=== PATIENT | female | born 1935 | race African-American/Black ===

== ENCOUNTER 2020-01-24 12:33 | Emergency (ER) | payer MEDICARE ==
[~2020-01-24] VITALS: Ht 165.1 cm; Wt 75.7 kg
[2020-01-24 12:54] VITALS: BP 184/67
[2020-01-24] MEDS ORDERED: SYNTHROID50 MCG ORAL (12:57)
[2020-01-24] MEDS ORDERED: LEXAPRO10 MG ORAL (12:57)
[2020-01-24] MEDS ORDERED: METFORMIN HCL500 M1 ORAL (12:57)
--- NOTE | 2020-01-24 13:32 | Emergency Room Report ---
History of Present Illness General Chief Complaint: Upper Extremity Injury Source: Patient Present Illness HPI 84-year-old female here complaining of left hand pain x3 weeks. Reports that she accidentally injured it 3 weeks ago however does not recall how. Pain is localized to left fifth metacarpal. Has not taken medication for symptom relief. Area of pain is tender to palpation. Denies any pain radiation and tingling numbness. Has full range of motion. Patient is neurovascularly intact. Has full strength in the affected side. Denies all other injuries. Patient is currently not taking any blood thinners. Patient also complains of a semi-pruritic dry rash to left arm. Does not know how long it is been there. Reports that she sweats a lot. Rash appears to be eczematic, without any pus , and not TTP Allergies: Coded Allergies: ASPIRIN (Verified Allergy, Unknown, 01/24/20) CODEINE (Verified Allergy, Unknown, 01/24/20) PENICILLINS (Verified Allergy, Unknown, 01/24/20) SULFA (SULFONAMIDE ANTIBIOTICS) (Verified Allergy, Unknown, 01/24/20) COVID-19 Screening Contact w/high risk pt: No Experienced COVID-19 symptoms?: No COVID-19 Testing performed PROCUREMENT INTERN: No Patient History Past Medical History: see triage record Past Surgical History: none Pertinent Family History: none Now: No Immunizations: UTD Reviewed Nursing Documentation: PMH: Agreed; PSxH: Agreed Nursing Documentation-PM Past Medical History: No History, Except For Hx Diabetes: Yes - hypothirodism History Of Psychiatric Problem: Yes - dementia Review of Systems All Other Systems: negative except mentioned in HPI Physical Exam Vital Signs Date Time Temp Pulse Resp B/P (MAP) Pulse Ox O2 Delivery O2 Flow Rate FiO2 01/24/20 12:42 96.8 56 16 184/67 (106) 98 Room Air Sp02 EP Interpretation: reviewed, normal General Appearance: no apparent distress, alert, GCS 15, non-toxic Head: normocephalic, atraumatic Eyes: bilateral eye normal inspection, bilateral eye PERRL ENT: hearing grossly normal, normal pharynx, no angioedema, normal voice Neck: full range of motion, supple/symm/no masses Respiratory: chest non-tender, lungs clear, normal breath sounds, no rhonchi, speaking full sentences Cardiovascular #1: regular rate, rhythm, no edema, no murmur Cardiovascular #2: 2+ radial (R), 2+ radial (L) Gastrointestinal: normal bowel sounds, non tender, soft, non-distended, no guarding, no rebound Rectal: deferred Musculoskeletal: back normal, normal range of motion, tender - Left fifth metacarpal bone Neurologic: alert, motor strength/tone normal, oriented x3, sensory intact, responsive, speech normal Psychiatric: judgement/insight normal, memory normal, mood/affect normal, no suicidal/homicidal ideation Skin: rash - eczematic rash left armpit, no pus, non celluletic Lymphatic: no adenopathy Procedures Splinting Splinting : Consent: Verbal Location: left fifth finger Pre-Made Type: metal Pre-Proc Neuro Vasc Exam: normal Post-Proc Neuro Vasc Exam: normal Patient Tolerated: Well Complications: None Medical Decision Making PA Attestation ALL Diagnosis and treatment plan reviewed and discussed with my supervising physician Dr. Womack Diagnostic Impression: Primary Impression: Finger sprain ER Course 84-year-old female here complaining of left hand pain x3 weeks. Reports that she accidentally injured it 3 weeks ago however does not recall how. Pain is localized to left fifth metacarpal. Has not taken medication for symptom relief. Area of pain is tender to palpation. Denies any pain radiation and tingling numbness. Has full range of motion. Patient is neurovascularly intact. Has full strength in the affected side. Denies all other injuries. Patient is currently not taking any blood thinners.Patient also complains of a semi-pruritic dry rash to left arm. Does not know how long it is been there. Reports that she sweats a lot. Rash appears to be eczematic, without any pus, and not TTP Ddx considered but are not limited to: Hand sprain, hand sprain, hand fracture Vital signs: are WNL, pt. is afebrile H&PE are most consistent with :fifth finger sprain, contact dermatitis ORDERS: Hand x-ray, Motrin, Tylenol, triamcinolone cream ED INTERVENTIONS: Tylenol DISCHARGE: At this time pt. is stable for d/c to home. Will provide printed patient care instructions, and any necessary prescriptions. Care plan and follow up instructions have been discussed with the patient prior to discharge. Take medication as directed, follow-up with life specialist, keep splint on, if worsening symptoms return to the emergency room Other X-Ray Diagnostic Results Other X-Ray Diagnostic Results : X-Ray ordered: Left hand # of Views/Limited Vs Complete: 3 View Indication: Pain EP Interpretation: Yes PA Xray: Interpretation reviewed, by supervising MD, and agrees with findings. Interpretation: no dislocation, no soft tissue swelling, no fractures Impression: No acute disease Electronically Signed by: Ashlyn Martinez PA-C Last Vital Signs Date Time Temp Pulse Resp B/P (MAP) Pulse Ox O2 Delivery O2 Flow Rate FiO2 01/24/20 12:54 96.8 56 16 184/67 98 Room Air Disposition: HOME, SELF-CARE Condition: Stable Patient Instructions: Contact Dermatitis, [id number], Finger Sprain, Easy-to- Read Additional Instructions: Take medication as directed, follow-up with life specialist, keep splint on, if worsening symptoms return to the emergency room Ashlyn Harrell Jan 24, 2020 13:32
[2020-01-24] MEDS ORDERED: TRIAMCINOLONE A15 G1 TP (13:47)
[2020-01-24] MEDS ORDERED: TYLENOL EXTRA500 MG ORAL (13:47)
[2020-01-24] MEDS ORDERED: IBUPROFEN400 MG ORAL (13:47)
[2020-01-24 13:58] VITALS: BP 158/64
--- NOTE | 2020-01-24 14:23 | Diagnostic Imaging Report ---
EXAM: XR Left Hand Complete, 3 or More Views CLINICAL HISTORY: TRAUMA TECHNIQUE: Frontal, lateral and oblique views of the left hand. COMPARISON: No relevant prior studies available. FINDINGS: Bones/joints: No acute fracture. Degenerative changes and osteopenia. Soft tissues: No radiodense foreign body. Mild soft tissue swelling. IMPRESSION: No acute fracture.
== END 2020-01-24 13:58 | disposition home or self-care (01) ==
LOC: EMR 13:30
DX: S63.617A Unspecified sprain of left little finger, initial encounter (principal); X58.XXXA Exposure to other specified factors, initial encounter; Y92.9 Unspecified place or not applicable; R21 Rash and other nonspecific skin eruption; Z88.6 Allergy status to analgesic agent; Z88.2 Allergy status to sulfonamides; Z88.0 Allergy status to penicillin; E03.9 Hypothyroidism, unspecified; F03.90 Unspecified dementia, unspecified severity, without behavioral disturbance, psychotic disturbance, mood disturbance, and anxiety
CPT/HCPCS: 99283